=== PATIENT | female | born 1945 | race Caucasian/White ===

== ENCOUNTER 2019-09-11 09:16 | Outpatient (CLI) | payer BC, SELFPAY ==
--- NOTE | 2019-09-11 09:40 | XR_ITS ---
NOTE: Report was unsigned for reason: Order was edited. Original Signature date and time was: 09/11/19; 0951 WS: [id number] XR chest 2V insp/exp [id number] REASON FOR EXAM: MALIGNANT NEOPLASM OF BLADDER FINDINGS: The heart and mediastinum were normal. There is arteriosclerotic changes in the arch of the aorta. Along the left costophrenic angle and cardiac border is a fat pad of no significance. The lung denton are well aerated. There is no active infiltrates. No pneumonia, pleural effusion, pulmonary edema, no masses are seen. No osseous abnormalities. The hilum and apices normal. [facility] XR/XR chest 2V insp/exp [id number] IMPRESSION: Negative chest for active pathology.
--- NOTE | 2019-09-11 09:40 | US_ITS ---
WS: [id number] RENAL ULTRASOUND REASON FOR EXAM: RENAL U/S 09/11/19@9:30 WITH CXR AND LABS.APPT TO FOLLOW TECHNIQUE: Grayscale and Doppler ultrasound examination of the kidneys. FINDINGS: Right kidney: Right kidney measures 9.8 cm x 5.1 cm x 4.0 cm. No hydronephrosis or stones. Left kidney: Left kidney measures 8.9 cm x 5.2 cm x 3.7 cm. Hydronephrosis or stones. The urinary bladder is not seen by history the bladder was removed moved October 2018 has ostomy. US/US renal BI* [id number] IMPRESSION: Normal kidneys bilaterally The urinary bladder is absent.
[2019-09-11 10:42] LABS: Basophils % 0.3 %; Eosinophils # 0.2 10^3/uL (0.0-0.8); Eosinophils % 2.4 %; Hematocrit 41.2 % (37.0-47.0); Hemoglobin 13.1 g/dL (11.5-15.3); Lymphocytes # 1.1 10^3/uL (0.8-4.8); Lymphocytes % 11.7 %; Mean Corpuscular HGB Conc 31.8 g/dL (30.0-36.0); Mean Corpuscular Volume 100.7 fL (81-99); Mean Platelet Volume 9.9 fL (7.4-10.4); Monocytes # 0.6 10^3/uL (0.2-0.9); Neutrophils # 7.3 10^3/uL (1.8-7.7); Nucleated Red Blood Cells % 0 %; Platelet Count 232 10^3/cmm (130-400); Red Blood Count 4.09 10^6/uL (4.1-5.3); Red Cell Distribution Width 12.3 % (12.1-15.1); White Blood Count 9.3 10^3/uL (4.0-10.0)
[2019-09-11 10:58] LABS: Alanine Aminotransferase 18 U/L (0-33); Albumin Level 4.6 g/dL (3.5-5.2); Alkaline Phosphatase 63 IU/L (35-105); Anion Gap 16.1 (5-19); Aspartate Amino Transferase 15 U/L (0-32); Blood Urea Nitrogen 32 mg/dL (8-23); Calcium 10.1 mg/dL (8.5-10.5); Carbon Dioxide 26 mmol/L (22-29); Chloride 98 mmol/L (98-107); Globulin 2.9 g/dL (1.3-4.6); Glucose 269 mg/dL (65-115); Osmolality Calculated 289 mOsm/kg (285-295); Potassium 4.1 mmol/L (3.5-5.1); Sodium 136 mmol/L (136-145); Total Bilirubin 0.2 mg/dL (0.15-1.2); Total Protein 7.5 g/dL (6.6-8.7)
== END 2019-09-11 09:17 | disposition home or self-care (01) ==
PROVIDERS: Family Provider Family Medicine; PCP Family Medicine; Visit Provider Urology
DX: C67.8 Malignant neoplasm of overlapping sites of bladder (principal)
CPT/HCPCS: 71046; 76770; 80053; 85025

== ENCOUNTER 2019-12-30 10:47 | Observation (INO) | payer BC, SELFPAY ==
[2019-12-30] VITALS (15 sets, daily range): BP systolic 124–149; BP diastolic 60–74; PULSE 78–102; RESP 14–18; TEMP 36.7–36.9; O2SAT 94–99; BMI 18.3
--- NOTE | 2019-12-30 10:58 | XRR_ITS ---
PROCEDURE INFORMATION: Exam: XR Chest, 1 View Exam date and time: 12/30/2019 11:00 AM Age: 74 years old Clinical indication: Chest pain TECHNIQUE: Imaging protocol: XR of the chest Views: 1 view. COMPARISON: CR XR chest 2V* [id number] 09/11/2019 9:45 AM FINDINGS: Lungs: Unremarkable. No consolidation. Pleural space: Unremarkable. No pleural effusion. No pneumothorax. Heart/Mediastinum: Unremarkable. No cardiomegaly. Bones/joints: No acute findings. XR/XR chest 1V portable [id number] IMPRESSION: No acute findings.
--- NOTE | 2019-12-30 10:59 | ECG_ITS ---
[facility] ED Test Date: 2019-12-30 Pat Name: Yady Arrington Department: Room: Gender: Female Systems Designer: : 1945 Requested By: Simi Khalil Order Number: [id number] Stephany MD: Adelina Key M.D. Measurements Intervals [place] Rate: 93 P: 67 IL: 158 QRS: 20 QRSD: 89 T: 33 QT: 304 QTc: 379 Interpretive Statements SINUS RHYTHM LOW QRS VOLTAGE IN PRECORDIAL LEADS [QRS DEFLECTION < 1.0 mV IN CHEST LEADS] NONSPECIFIC ST & T-WAVE ABNORMALITY Compared to ECG 07/07/2016 00:01:52 Low QRS voltage now present Sinus tachycardia no longer present T-wave abnormality still present Electronically Signed On 12-30-2019 19:59:41 CDT by Adelina Key M.D. [id number]
[2019-12-30 11:37] LABS: Basophils % 0.4 %; Eosinophils # 0.2 10^3/uL (0.0-0.8); Eosinophils % 2.6 %; Hematocrit 40.1 % (37.0-47.0); Hemoglobin 12.7 g/dL (11.5-15.3); Lymphocytes # 1.3 10^3/uL (0.8-4.8); Lymphocytes % 19.2 %; Mean Corpuscular HGB Conc 31.7 g/dL (30.0-36.0); Mean Corpuscular Hemoglobin 31.9 pg (28.0-34.0); Mean Corpuscular Volume 100.8 fL (81-99); Mean Platelet Volume 10.2 fL (7.4-10.4); Monocytes # 0.7 10^3/uL (0.2-0.9); Monocytes % 9.4 %; Neutrophils # 4.7 10^3/uL (1.8-7.7); Neutrophils % 67.8 %; Nucleated Red Blood Cells % 0 %; Platelet Count 215 10^3/cmm (130-400); Red Blood Count 3.98 10^6/uL (4.1-5.3); Red Cell Distribution Width 13.1 % (12.1-15.1); White Blood Count 6.9 10^3/uL (4.0-10.0)
--- NOTE | 2019-12-30 11:53 | ED_ITS ---
HPI - Chest Pain General: Chief Complaint: Chest Pain Stated Complaint: CP Time Seen by Provider: 12/30/19 10:58 Source: patient and family Mode of arrival: ambulatory Limitations: no limitations History of Present Illness: HPI narrative: Yady is a very nice 74-year-old female who comes in complaining of chest pain. Patient states that she woke up about 1230 in the night because she did not feel right. Then at 230 as she was getting up and getting ready to go back to bed she developed chest pain that radiated to both arms. She associated shortness of breath but denies any diaphoresis, nausea, vomiting. Patient had an old prescription of nitroglycerin and took 3 sublingual nitroglycerin at 1 time. This resolved her pain within 2 to 3 minutes. Patient was then able to sleep through the night but then today she was performing mild activity again when she developed the same chest discomfort as before. She took 3 sublingual nitroglycerin all at once once again and it resolved her pain within 1 to 2 minutes. Patient is concerned now as she is had recurrent pains now and she presents to the ER. She only has mild arm discomfort presently. Associated symptoms: Reports dyspnea; Deny abdominal pain, diaphoresis, fever(s), nausea, palpitations, syncope or vomiting Review of Systems Const: Denies: fever(s), chills, body aches, fatigue, malaise or diaphoresis Eyes: Denies: change in vision, blurry vision, blind spots, photophobia, eye discharge or eye redness ENMT: Denies: throat pain, odynophagia, hoarseness, swelling of lips/tongue, oral sores, ear or mastoid pain, ear discharge, change in hearing or nasal discharge Card: Reports: chest pain; Denies: palpitations, irregular heart rhythm, edema, lightheadedness, syncope, pre-syncope, dyspnea on exertion or orthopnea Resp: Reports: dyspnea; Denies: productive cough, non-productive cough, wheezing, hemoptysis or chest congestion GI: Denies: abdominal pain, nausea, vomiting, hematemesis, coffee ground emesis, heartburn, diarrhea, constipation, GI cramping, hematochezia or melena : Denies: flank pain, dysuria, urinary frequency, urinary urgency or hematuria Musc: Denies: neck pain, back pain, extremity pain, extremity swelling, joint pain, joint swelling, joint redness, joint warmth or joint stiffness Skin/Breast: Denies: rash, pruritus, erythema, skin tenderness or jaundice Neuro: Denies: headache(s), numbness in extremities, weakness in extremities, sensory changes, lack of coordination, difficulty walking, dizziness, vertigo, confusion, Slurred speech present or seizure-like activity Florencio/Lymph: Denies: easy bruising, easy bleeding, petechiae, purpura or enlarged lymph nodes All/Imm: Denies: urticaria, throat swelling, tongue swelling, facial swelling or acute wheezing PFSH ED PFSH: Medical History History of bladder cancer Surgical History History of total cystectomy Hx of cholecystectomy Hx of transurethral destruction of bladder lesion Status post LASIK surgery of both eyes Family History Father , AT AGE 80 EMPHYSEMA No problems noted. Mother , AT AGE 83 Diabetes Social History Smoking and tobacco status: never smoked Alcohol intake: never Adopted: No Caregiver/support person: No Lives independently: No Household members: spouse Marital status: History of recent travel: No Physical Exam Const: COMMON NORMALS: no acute distress, patient oriented x3, no limitations, healthy appearing and well nourished GENERAL APPEARANCE: cooperative, well kempt and well developed HENMT: COMMON NORMALS: normocephalic, atraumatic, external ears normal, EAC's normal and Normal external nose present HEAD & SCALP: normal to inspection, normocephalic and atraumatic FACE & SINUS: normal facial exam and face symmetric NOSE: Normal external nose present and Normal nares present EXTERNAL EAR: Yes external ears normal EXTERNAL AUDITORY CANAL: EAC's normal MOUTH: Normal oral and palatal mucosa present, lip normal and tongue normal Eye: COMMON NORMALS: Equal, round and reactive pupils present and conjunctivae normal GENERAL EYE: appearance normal, both eyes and all related structures ALIGNMENT: Yes alignment normal PERIORBITAL: periorbital findings normal EYELID: eyelids normal CONJUNCTIVA: Yes conjunctivae normal SCLERA: sclerae normal PUPIL: Yes Equal, round and reactive pupils present Neck/C-Spine: COMMON NORMALS: full ROM, no lymphadenopathy, supple, no meningeal signs and no JVD GENERAL: Yes normal visual inspection and Yes trachea midline Chest: COMMONS NORMALS: normal inspection of the chest and normal palpation of entire chest wall Resp: COMMON NORMALS: normal respiratory effort, No retractions and No use of accessory muscles EFFORT & INSPECTION: Yes able to speak in complete sentences and Yes symmetric chest movement AUSCULTATION: no crackles, no rales, no rhonchi and no wheezes Cardio: COMMON NORMALS: no JVD, regular rate, regular rhythm, S1 normal heart sound present and S2 normal heart sound present RATE: regular rate RHYTHM: regular rhythm HEART SOUNDS: S1 normal heart sound present, S2 normal heart sound present, no click, no gallops, no murmurs, no rubs and abnormal split S2 GI: COMMON NORMALS: Soft to palpation and No hepatosplenomegaly present PALPATION: Yes Soft to palpation, No Tenderness to palpation present (GI), No Guarding due to palpation present (GI), No Rigid due to palpation, Yes No hepatosplenomegaly present, No Hernia present, No Palpable mass present and No Pulsatile mass present : COMMON NORMALS: Yes no CVA tenderness BLADDER/KIDNEY EXAM: Yes no CVA tenderness EXTERNAL FEMALE EXAM: No Hernia present Back/Pelvis: COMMON NORMALS: no CVA tenderness, thoracic and lumbar spine normal to inspection, no thoracic nor lumbar tenderness and thoraco-lumbar ROM normal Extremity: COMMON NORMALS: normal to inspection, full ROM, capillary refill normal, no joint enlargement, no clubbing, cyanosis or edema and no calf tenderness Neuro: COMMON NORMALS: patient oriented x3, CN's II-XII intact bilaterally, moves all extremities, no focal motor deficits and no sensory deficits noted MENINGEAL SIGNS: Yes no meningeal signs SPEECH: speech normal Psych: COMMON NORMALS: mental status grossly normal, Normal thought process present, cooperative, normal affect, speech normal and activity/motor behavior n ormal APPEARANCE: Yes well kempt SPEECH: Yes normal speech THOUGHT PROCESS: Normal thought process present Skin: COMMON NORMALS: no rashes or lesions noted, turgor normal, no jaundice, no petechiae and no mottling GENERAL SKIN EXAM: no rashes or lesions noted and turgor normal Course Vital Signs: Vital signs: Vital Signs Temperature 98.5 F 07/05/20 11:03 Pulse Rate 98 12/30/19 11:03 Respiratory Rate 14 12/30/19 11:03 Blood Pressure 133/68 12/30/19 11:03 Pulse Oximetry 98 12/30/19 11:03 MDM - Chest Pain MDM Narrative: Medical decision making narrative: Patient has a heart score of 6. Her symptoms are gone. I gave her Plavix as she is allergic to aspirin and Dr. Lemus, after reviewing the case agreed to admit and she also agreed to a dose of Lovenox. Patient still having no active pain but with her heart score and elevated cardiac enzymes she agrees to admit for rule out and a stress test. Lab Data: Labs: Lab Results 12/30/19 12/30/19 12/30/19 Range/Units 11:30 11:30 11:30 WBC 6.9 (4.0-10.0) 10^3/ uL RBC 3.98 L (4.1-5.3) 10^6/u L Hgb 12.7 (11.5-15.3) g/dL Hct 40.1 (37.0-47.0) % MCV 100.8 H (81-99) fL MCH 31.9 (28.0-34.0) pg MCHC 31.7 (30.0-36.0) g/dL RDW 13.1 (12.1-15.1) % Plt Count 215 (130-400) 10^3/c mm MPV 10.2 (7.4-10.4) fL Neut % (Auto) 67.8 % Lymph % (Auto) 19.2 % Delta % (Auto) 9.4 % Eos % (Auto) 2.6 % Baso % (Auto) 0.4 % Neut # (Auto) 4.7 (1.8-7.7) 10^3/u L Lymph # (Auto) 1.3 (0.8-4.8) 10^3/u L Delta # (Auto) 0.7 (0.2-0.9) 10^3/u L Eos # (Auto) 0.2 (0.0-0.8) 10^3/u L Baso # (Auto) 0.0 (0.0-0.1) 10^3/u L Nucleated RBC % (a uto) 0 % Nucleated RBCs # 0.0 /100WBC Sodium 138 (136-145) mmol/L Potassium 3.8 (3.5-5.1) mmol/L Chloride 105 (98-107) mmol/L Carbon Dioxide 21 L (22-29) mmol/L Anion Gap 15.8 (5-19) BUN 30 H (8-23) mg/dL Creatinine 1.0 H (0.5-0.9) mg/dL Glucose 435 H (65-115) mg/dL Calculated Osmolal ity 302 H (285-295) mOsm/k g Calcium 10.5 (8.5-10.5) mg/dL Magnesium 2.0 (1.7-2.3) mg/dL Total Bilirubin 0.2 (0.15-1.2) mg/dL AST 12 (0-32) U/L ALT 18 (0-33) U/L Alkaline Phosphata se 75 (35-105) IU/L Troponin T Baselin e 34 H (0-10) ng/L NT-Pro-B Natriuret Pep 70 (0-125) pg/mL Total Protein 6.7 (6.6-8.7) g/dL Albumin 4.2 (3.5-5.2) g/dL Globulin 2.5 (1.3-4.6) g/dL Lipase 62 H (13-60) U/L Imaging Data^: CXR: My impression: No acute cardiopulmonary findings. EKG Data^: EKG 1: Attestation: I personally reviewed and interpreted this EKG as follows: EKG interpretation date: 12/30/19 EKG interpretation time: 10:57 Interpretation: Normal sinus rhythm at 93 beats a minute, normal axis, no blocks, normal intervals, nonspecific ST and T wave changes. Discharge Plan Discharge Patient Disposition: Placed in Observation Clinical Impression: Chest pain Condition: Stable Prescriptions: No Action No Known Home Medications RF: 0 Referrals: Braxton Lr [Primary Care Provider] - Coding Level of Care Code ED Cured Meat Packing Supervisor for Chg Fwd Exam Comprehensive
[2019-12-30 12:04] LABS: Troponin(5th) Baseline 34 ng/L (0-10)
[2019-12-30 12:06] LABS: Alanine Aminotransferase 18 U/L (0-33); Albumin Level 4.2 g/dL (3.5-5.2); Alkaline Phosphatase 75 IU/L (35-105); Anion Gap 15.8 (5-19); Aspartate Amino Transferase 12 U/L (0-32); Blood Urea Nitrogen 30 mg/dL (8-23); Calcium 10.5 mg/dL (8.5-10.5); Carbon Dioxide 21 mmol/L (22-29); Chloride 105 mmol/L (98-107); Globulin 2.5 g/dL (1.3-4.6); Glucose 435 mg/dL (65-115); Lipase 62 U/L (13-60); NT Pro B Type Natriuretic Pept 70 pg/mL (0-125); Osmolality Calculated 302 mOsm/kg (285-295); Potassium 3.8 mmol/L (3.5-5.1); Sodium 138 mmol/L (136-145); Total Bilirubin 0.2 mg/dL (0.15-1.2); Total Protein 6.7 g/dL (6.6-8.7)
[2019-12-30] MEDS: nitroglycerin 1 gm/inch oint Pkt 1 INCH TOPICAL (12:36)
[2019-12-30] MEDS: enoxaparin 100 mg/mL Syringe 55 MG SUBCUT (12:41)
[2019-12-30] MEDS: clopidogrel 75 mg Tablet PO (12:42)
--- NOTE | 2019-12-30 12:59 | ECG_ITS ---
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 Measurements Intervals [place] Rate: 86 P: 59 MS: 156 QRS: 23 QRSD: 86 T: 31 QT: 352 QTc: 421 Interpretive Statements SINUS RHYTHM NONSPECIFIC ST & T-WAVE ABNORMALITY Compared to ECG 12/30/2019 10:57:02 No significant changes Electronically Signed On 12-30-2019 20:06:26 CDT by Adelina Key M.D. [id number]
--- NOTE | 2019-12-30 13:19 | PC.NURSE ---
Read and agree with assessment.
[2019-12-30 14:01] LABS: Troponin 5 2HR 26.91 ng/L (0-10)
[2019-12-30 14:04] LABS: Troponin 5 2HR Delta -7.09 ABS# (0-10)
--- NOTE | 2019-12-30 14:53 | PC.NURSE ---
From ER Received pt from ER. Pt is alert, awake, oriented. Denies any pain or discomfort. Not in distress. Pt is on room air. VS taken. Oriented pt on nurse name, and call light use.
--- NOTE | 2019-12-30 15:17 | P.HP_ITS ---
Providers/Chief Complaint Admitting Physician: Marie Lemus MD Primary Care Provider: Braxton Lr Chief Complaint: CP History of Present Illness Yady Arrington is a 74 year old female with a past medical history of mild intermittent asthma and bladder cancer status post RC/IC 1 year ago who presents today complaining of chest pain. Patient states she was in her usual state of health until about last night when at 3 AM she suddenly woke up with substernal chest discomfort described as a heaviness/pressure. The sensation was radiating also into her bilateral shoulders. She took 3 pills of nitro that she had leftover from 12 years ago and went back to sleep after a few hours. This afternoon as she went about doing her regular housework, the sensation came back and again she needed to take 3 nitroglycerin to relieve the sensation. She does have a history of GERD and reflux symptoms. She also took Tums, however states that the pain currently feels very different from her usual GERD and Tums had no improvement on this. Upon presentation to the ER her pain had subsided however she did complain of some vague arm discomfort. Her EKG does not show any acute ST-T wave changes. Baseline troponin is at 34, 2-hour troponin at 26 with negative delta. States pain is much improved after nitrates and getting some morphine in route to the ED. Denies any other complaints of fever, cough, URI type symptoms. Of note she has an allergy to aspirin, which she describes as breaking out into hives all over. She therefore received Plavix in the ED upon arrival. She has also received 1 dose of 55 mg of Lovenox. She denies any associated symptoms such as diaphoresis, nausea vomiting or shortness of breath. Review of Systems General: Reports: 10 or more systems reviewed and unremarkable except in HPI and below Const: Denies: fever(s), chills or body aches Eyes: Denies: change in vision, blurry vision or photophobia ENMT: Denies: throat pain, enlarged tonsils, odynophagia, hoarseness or nasal congestion Card: Reports: chest pain; Denies: palpitations, irregular heart rhythm, edema, swelling of feet/ankles, li ghtheadedness, pre-syncope, dyspnea on exertion or orthopnea Resp: Denies: dyspnea, productive cough, non-productive cough, wheezing, stridor, pain on inspiration, change in phlegm color, hemoptysis or chest congestion GI: Reports: heartburn; Denies: abdominal pain, nausea, vomiting, hematemesis, coffee ground emesis, dysphagia, diarrhea, constipation, GI cramping, change in stool character, hematochezia or melena : Denies: flank pain, difficulty voiding, dysuria, urinary frequency, urinary urgency, urinary hesitancy or hematuria Musc: Denies: neck pain, back pain, extremity pain, joint swelling, joint warmth or deformity Neuro: Denies: headache(s), numbness in extremities, weakness in extremities, sensory changes, difficulty walking, frequent falls, dizziness, vertigo, behavioral changes, Slurred speech present or seizure-like activity Psych: Denies: anxiety, depression, suicidal ideation or homicidal ideation Endo: Denies: polyuria, polydipsia, tired all the time, cold intolerance or hot flashes Florencio/Lymph: Denies: easy bruising or easy bleeding Medications/Allergies Home Medications Medication Instructions Recorded Confirmed Last Taken Type fluticasone propionate [Flonase 2 spray INTRANASAL DAILY 12/30/19 12/30/19 12/30/19 History Allergy Relief] Allergies Allergy/AdvReac Type Severity Reaction Status Date / Time Penicillins Allergy ALGY-Rash Verified 09/11/19 10:53 aspirin AdvReac ADR-Itching Verified 09/11/19 10:53 PFSH Acute PFSH: Medical History History of bladder cancer Surgical History History of total cystectomy Hx of cholecystectomy Hx of transurethral destruction of bladder lesion Status post LASIK surgery of both eyes Family History Father , AT AGE 80 EMPHYSEMA No problems noted. Mother , AT AGE 83 Diabetes Social History Smoking and tobacco status: never smoked Alcohol intake: never Adopted: No Caregiver/support person: No Lives independently: No Household members: spouse Marital status: History of recent travel: No Vitals/I&O/Wt Last Vital Signs Temp 98.3 F 12/30/19 15:05 Pulse 93 12/30/19 15:05 Resp 18 12/30/19 15:05 BP 149/74 12/30/19 15:05 Pulse Ox 99 12/30/19 15:05 Weight last 48 hrs Weight 54.683 kg Physical Exam Narrative: EXAM NARRATIVE: GEN: Awake, alert and oriented, no acute distress HEENT: normocephalic, atraumatic CVS: S1S2 N RS: CTA B/L Abd: Soft, nt/nd , bs+ ELEVATOR EXAMINER: no focal neuro deficits EXT: no edema, cyanosis, clubbing Data : 12/30/19 11:30 12/30/19 11:30 A&P Assessment and plan (1) Unstable angina: Status: Acute (2) Hyperglycemia: Status: Acute Additional A&P Information Admit to CSU in observation 1. Chest pain EKG without any acute ST-T wave changes and troponins are mildly elevated with a -2-hour delta. Less likely to be an acute NJ. Continue to trend. However unstable angina cannot be ruled out. We will go ahead and schedule patient for a stress test in the morning. Other differentials include GERD, however patient states currently the pain feels very different from her regular reflux symptoms and is also exacerbated by minimal activity which seems very uncharacteristic of reflux disease. In the interim continue Plavix. Hold off on any further doses of Lovenox as this is less likely to be an acute NJ. Topical nitrates as needed as needed for chest pain. We will obtain baseline echocardiogram #2 incidentally noted hyperglycemia on labs in the absence of any past history of diabetes mellitus. We will recheck with a fingerstick right now and also obtain an HbA1c Obtain lipid panel #3 history of mild intermittent asthma requiring only as needed albuterol inhalers at home. Not currently in exacerbation. DVT prophylaxis Lovenox Patient is full code Attestations Medical Necessity Statement*: Admitted observation for ongoing chest pain, need to evaluate for unstable angina. Coding Level of Care Code Acute Concrete Conveyor Operator for Gerry Cotter Diagnoses Unstable angina I20.0 Hyperglycemia R73.9
[2019-12-30 15:41] LABS: Glucose Point of Care 352 mg/dL (70-110)
[2019-12-30 16:06] LABS: Bilirubin Urine Neg (NEGATIVE); Blood Urine 2+ (Negative); Glucose Urine UA 1+ (Normal); Ketones Urine Negative (Negative); Leukocyte Esterase Urine Trace (Negative); Nitrate Urine Positive (Negative); Protein Urine 1+ (Negative); Specific Gravity, Urine 1.025 (1.005-1.030); Urine Appearance Hazy (CLEAR); Urine Color Yellow (Yellow); Urobilinogen Urine Norm (Negative); pH Urine 7 (5-7)
[2019-12-30 16:07] LABS: Add Urine Culture? Yes; Bacteria Urine 2+; RBC Urine 0-4 /hpf (0-2); Transitional Epi Cells Urine 0-4 /hpf; WBC Urine 0-4 /hpf (0-5)
[2019-12-30 16:21] LABS: Chol HDL Ratio 3.43 mg/dL (0.0-4.40); Cholesterol 223 mg/dL (0-200); HDL Cholesterol 65 mg/dL (60-100); LDL Cholesterol Calculated 103 mg/dL (50-129); LDL HDL Ratio 1.58 RATIO (0.00-3.22); Triglycerides 273 mg/dL (0-150)
--- NOTE | 2019-12-30 16:59 | ECG_ITS ---
[facility] Test Date: 2019-12-30 Pat Name: Yady Arrington Department: Room: 102 Gender: Female Bleach Tester: : 1945 Requested By: Simi Khalil Order Number: [id number] Stephany MD: Adelina Key M.D. Measurements Intervals [place] Rate: 100 P: 57 AR: 152 QRS: 26 QRSD: 84 T: 81 QT: 338 QTc: 437 Interpretive Statements SINUS TACHYCARDIA NONSPECIFIC ST & T-WAVE ABNORMALITY ABNORMAL RHYTHM ECG Compared to ECG 12/30/2019 14:12:43 Sinus rhythm no longer present T-wave abnormality still present Electronically Signed On 12-30-2019 20:06:52 CDT by Adelina Key M.D. [id number]
[2019-12-30 17:15] LABS: Estmated Average Glucose 292; Hemoglobin A1C 11.8 % (4.0-6.0)
[2019-12-30 18:28] LABS: Troponin 5 6HR 23.82 ng/L (0-10)
[2019-12-30] MEDS: acetaminophen 325 mg Tablet 650 MG PO (19:40)
--- NOTE | 2019-12-30 19:41 | PC.NURSE ---
Patient complains of a headache and was given PRN Tylenol. Patient states I haven't had any chest pain since I got here when asked about chest pain. Will monitor.
--- NOTE | 2019-12-30 23:45 | PC.NURSE ---
Patient is not complaining of any chest pain, but is still complaining of a headache, asking for more Tylenol.
[2019-12-31] VITALS (8 sets, daily range): BP systolic 123–160; BP diastolic 60–79; PULSE 82–100; RESP 14–22; TEMP 36.4–36.9; O2SAT 94–96
--- NOTE | 2019-12-31 01:02 | PC.NURSE ---
Went to give patient Tylenol and patient is currently resting with eyes closed. Will reassess pain later and give PRN Tylenol if needed.
[2019-12-31] MEDS: morphine 4 mg/mL SDV 1 mL IVP (02:00)
--- NOTE | 2019-12-31 02:10 | PC.NURSE ---
Patient complaints of headache that radiates into left shoulder. PRN Morphine given. EKG taken. Will reassess pain.
--- NOTE | 2019-12-31 02:18 | PC.NURSE ---
Patient's blood sugar was 248 at bedtime. Accucheck machine is docked, but has not transferred to computer chart.
--- NOTE | 2019-12-31 03:21 | PC.NURSE ---
Patient states she has not been able to sleep much. Patient states I have trouble sleeping at home too. Patient states my head and left shoulder is much better, it still hurts just a tad. Will continue to reassess pain.
[2019-12-31 03:57] LABS: Basophils % 0.3 %; Eosinophils # 0.2 10^3/uL (0.0-0.8); Hematocrit 41.5 % (37.0-47.0); Hemoglobin 13.1 g/dL (11.5-15.3); Lymphocytes # 1.4 10^3/uL (0.8-4.8); Lymphocytes % 21.3 %; Mean Corpuscular HGB Conc 31.6 g/dL (30.0-36.0); Mean Corpuscular Hemoglobin 31.4 pg (28.0-34.0); Mean Corpuscular Volume 99.5 fL (81-99); Mean Platelet Volume 10.6 fL (7.4-10.4); Monocytes # 0.5 10^3/uL (0.2-0.9); Monocytes % 7.3 %; Neutrophils # 4.4 10^3/uL (1.8-7.7); Neutrophils % 67.8 %; Nucleated Red Blood Cells % 0 %; Platelet Count 227 10^3/cmm (130-400); Red Blood Count 4.17 10^6/uL (4.1-5.3); Red Cell Distribution Width 13.1 % (12.1-15.1); White Blood Count 6.6 10^3/uL (4.0-10.0)
[2019-12-31 04:15] LABS: Anion Gap 16.6 (5-19); Blood Urea Nitrogen 29 mg/dL (8-23); Calcium 9.3 mg/dL (8.5-10.5); Carbon Dioxide 20 mmol/L (22-29); Chloride 105 mmol/L (98-107); Glucose 263 mg/dL (65-115); Osmolality Calculated 292 mOsm/kg (285-295); Potassium 3.6 mmol/L (3.5-5.1); Sodium 138 mmol/L (136-145)
[2019-12-31 04:21] LABS: Thyroid Stimulating Hormone 1.63 uIU/mL (0.27-4.20)
--- NOTE | 2019-12-31 06:00 | ECG_ITS ---
[facility] Test Date: 2019-12-31 Pat Name: Yady Arrington Department: Room: 102 Gender: Female Histology Teacher: Zohreh Dumont : 1945 Requested By: Marie Lemus Order Number: [id number] Stephany MD: Joao Ramos M.D. Interpretive Statements NAME OF STUDY: LEXISCAN SESTAMIBI STRESS TEST INDICATION: Chest Pain, LEXISCAN STRESS TEST ORDERING PHYSICIAN: Hospitalist CLINICAL INFORMATION: Chest pain INTERPRETATION: 1. The patient was brought to the laboratory where Lexiscan was infused over 20 seconds. The resting blood pressure was 141/48. Maximum blood pressure was 197/74. The resting heart rate was 93 beats per minute. The maximum heart rate is 133 beats per minute. 2. The baseline electrocardiogram reveals sinus rhythm with nonspecific ST changes and unusual R wave progression 3. With Lexiscan infusion, there were no ST segment changes to suggest ischemia. 4. The patient experienced no symptoms or arrhythmias during the examination. CONCLUSION: 1. Unremarkable Lexiscan infusion. 2. Nuclear imaging to follow. Electronically Signed On 12-31-2019 9:29:50 CDT by Joao Raoms M.D. [id number]
--- NOTE | 2019-12-31 06:15 | PC.NURSE ---
Patient's blood glucose is 240 at this time on accucheck machine.
[2019-12-31 06:26] LABS: Glucose Point of Care 240 mg/dL (70-110)
--- NOTE | 2019-12-31 07:30 | PC.NURSE ---
Patient off floor at [facility].
[2019-12-31] MEDS: regadenoson 0.4 Mg/5 ml Syringe IVP (08:27)
[2019-12-31] MEDS: ondansetron 2 mg/ML SDV 2 mL 4 MG IVP (08:33)
--- NOTE | 2019-12-31 08:50 | PC.NURSE ---
Patient back in room.
--- NOTE | 2019-12-31 09:47 | PC.CHAP ---
Pastoral Care Encounter/Spiritual Assessment Type of Contact [] Declined fireworks maker visit [] Patient/Family/Request visit [] Outpatient visit [] Follow-up visit [] Physician referral [] Code/Alert [x] Routine visit [] Staff referral [] Actively dying [] Patient sleeping [] Family support [] [] Out of room [] Palliative care [] [] Receiving care in room [] Pre-surgical visit [] Trauma [] Long length of stay [] ICU visit [] Other: Relational/Emotional Strength [] Patient feels connected with others/family/visitors/staff [] Distress [] Loneliness/isolation [] Abandonment Spirituality of Patient [] Person of Lena [] Attends Muslim of their Lena [] Believes in Prayer [] Reads Bible or Zoroastrian materials [] There are 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 [x] Prayer [] Active listening [x] Non-anxious presence [x] Spiritual/emotional support [] Crisis/trauma care [] Spiritual counseling [] Bereavement support [] Provided bereavement packet [] Provided Bible/devotional materials [] Provided toy/stuffed animal, coloring book to patient or family member [] Provided Communion [] Anointing/[place] [] Salvation [x] Completed spiritual assessment [] Other: Impact on Illness or Injury [] Angry [] Fearful [] Anxious [] Often cries [] Exhaustion [] Unable to work [] Unable to attend yarsanism [] Unable to walk/stand [] Unable to read [] Unable to drive [] Unable to eat/drink [] Unable to sleep [] Unable to be with family [] Patient intubated [] Other: Summary Patient had early am stress test- Patient has no appetite. Has one remaining test Time spent with patient 10 min
--- NOTE | 2019-12-31 10:30 | PC.NURSE ---
Patient taken back to nuclear medicine to complete stress test.
[2019-12-31] MEDS: insulin glargine 100 units/1 mL 10 UNIT SUBCUT (11:20)
[2019-12-31 11:28] LABS: Glucose Point of Care 287 mg/dL (70-110)
--- NOTE | 2019-12-31 12:00 | PC.NURSE ---
Demonstrated and explained how to give an insulin injection.
[2019-12-31] MEDS: enoxaparin 40 mg/0.4 mL Syringe SUBCUT (12:23)
--- NOTE | 2019-12-31 13:44 | P.DS_ITS ---
Discharge Providers Date of Admission: 12/30/19 12:26 Date of Discharge: December 31, 2019 Attending Provider at Admission: Marie Lemus MD Attending Provider at Discharge: Darryl Griffin MD Primary Care Provider: Braxton Lr Diagnoses at Discharge Discharge Diagnosis (1) Unstable angina: Status: Acute Problem details: Nuclear stress test negative. Troponin without significant increase on trend (2) Hyperglycemia: Status: Acute Problem details: Consistent with diabetes. Hemoglobin A1c 11.8 Reason for Visit Reason for Visit: CP Hospital Course Hospital Course: Yady is a 74-year-old white female who presented to the hospital with chest discomfort. Initial troponin was 34, then 26, then 23. EKG did not did not demonstrate any ischemic changes. She took some nitroglycerin at home. She had a current and past history of reflux. While in the hospital patient underwent a nuclear stress imaging test which was negative for ischemia. She was also found to have an elevated sugar, and A1c consistent with diabetes. Insulin was initiated. TSH was checked and normal. When I evaluated the patient she was chest discomfort free. She wished to go home. We discussed limitations of nuclear stress testing. She will discharge on Lantus, NovoLog, and metformin and have close follow-up with her primary care provider. Protonix will also be initiated secondary to concern chest discomfort may be reflux related. Physical Exam Narrative: EXAM NARRATIVE: General exam no apparent distress Cardiovascular regular rate and rhythm without murmur Lungs clear Abdomen is soft with positive bowel sounds Extremities no cyanosis clubbing or edema Discharge Data Data Completed and Pending: Completed Studies During Hospitalization Category Date Time Status Sestamibi Stress Test Request Routi ne Exams 12/31/19 06:00 Completed XR chest 1V cooper ble [id number] Stat Exams 12/30/19 10:58 Completed NM neeta perf SPECT r/s* [id number] Routin e Nuc Med 12/31/19 18:19 Completed Pending at discharge Category Date Time Status Urine Culture Sta t Lab 12/30/19 15:09 Received Labs from last 24 hours 12/31/19 12/31/19 12/31/19 11:19 06:08 03:04 WBC RBC Hgb Hct MCV MCH MCHC RDW Plt Count MPV Neut % (Auto) Lymph % (Auto) [place] % (Auto) Eos % (Auto) Baso % (Auto) Neut # (Auto) Lymph # (Auto) [place] # (Auto) Eos # (Auto) Baso # (Auto) Nucleated RBC % (a uto) Nucleated RBCs # Sodium Potassium Chloride Carbon Dioxide Anion Gap BUN Creatinine Glucose POC Glucose 287 240 Estimat Average Gl ucose Hemoglobin A1c Calculated Osmolal ity Calcium Troponin I 6 Hour Troponin I Hi Sens Del Troponin T 120 Min [place]nine [place] Troponin T Triglycerides Cholesterol LDL Cholesterol, C alc HDL Cholesterol LDL/HDL Ratio Cholesterol/HDL Ra federico TSH 1.63 Urine Color Urine Appearance Urine pH Ur Specific Gravit y Urine Protein Urine Glucose (UA) Urine Ketones Urine Blood Urine Nitrate Urine Bilirubin Urine Urobilinogen Ur Leukocyte Samra ase Urine RBC Urine WBC Ur Squamous Epith Cells Ur Transition Epit h Cell Urine Bacteria 12/31/19 12/31/19 12/30/19 03:04 03:04 17:37 WBC 6.6 RBC 4.17 Hgb 13.1 Hct 41.5 MCV 99.5 H MCH 31.4 MCHC 31.6 RDW 13.1 Plt Count 227 MPV 10.6 H Neut % (Auto) 67.8 Lymph % (Auto) 21.3 [place] % (Auto) 7.3 Eos % (Auto) 3.0 Baso % (Auto) 0.3 Neut # (Auto) 4.4 Lymph # (Auto) 1.4 [place] # (Auto) 0.5 Eos # (Auto) 0.2 Baso # (Auto) 0.0 Nucleated RBC % (a uto) 0 Nucleated RBCs # 0.0 Sodium 138 Potassium 3.6 Chloride 105 Carbon Dioxide 20 L Anion Gap 16.6 BUN 29 H Creatinine 0.9 Glucose 263 H POC Glucose Estimat Average Gl ucose Hemoglobin A1c Calculated Osmolal ity 292 Calcium 9.3 Troponin I 6 Hour 23.82 H Troponin I Hi Sens Del -10.18 L Troponin T 120 Min [place] Troponin T Triglycerides Cholesterol LDL Cholesterol, C alc HDL Cholesterol LDL/HDL Ratio Cholesterol/HDL Ra federico TSH Urine Color Urine Appearance Urine pH Ur Specific Gravit y Urine Protein Urine Glucose (UA) Urine Ketones Urine Blood Urine Nitrate Urine Bilirubin Urine Urobilinogen Ur Leukocyte Samra ase Urine RBC Urine WBC Ur Squamous Epith Cells Ur Transition Epit h Cell Urine Bacteria 12/30/19 12/30/19 12/30/19 15:27 15:09 13:28 WBC RBC Hgb Hct MCV MCH MCHC RDW Plt Count MPV Neut % (Auto) Lymph % (Auto) [place] % (Auto) Eos % (Auto) Baso % (Auto) Neut # (Auto) Lymph # (Auto) [place] # (Auto) Eos # (Auto) Baso # (Auto) Nucleated RBC % (a uto) Nucleated RBCs # Sodium Potassium Chloride Carbon Dioxide Anion Gap BUN Creatinine Glucose POC Glucose 352 Estimat Average Gl ucose Hemoglobin A1c Calculated Osmolal ity Calcium Troponin I 6 Hour Troponin I Hi Sens Del Troponin T 120 Min [place] 26.91 H Delta Troponin T -7.09 L Triglycerides Cholesterol LDL Cholesterol, C alc HDL Cholesterol LDL/HDL Ratio Cholesterol/HDL Ra federico TSH Urine Color Yellow Urine Appearance Hazy A Urine pH 7 Ur Specific Gravit y 1.025 Urine Protein 1+ H Urine Glucose (UA) 1+ Urine Ketones Negative Urine Blood 2+ H Urine Nitrate Positive H Urine Bilirubin Neg Urine Urobilinogen Norm Ur Leukocyte [place] ase Trace H Urine RBC 0-4 H Urine WBC 0-4 H Ur Squamous Epith Cells None Ur Transition Epit h Cell 0-4 Urine Bacteria 2+ H 12/30/19 12/30/19 11:30 11:30 WBC RBC Hgb Hct MCV MCH MCHC RDW Plt Count MPV Neut % (Auto) Lymph % (Auto) [place] % (Auto) Eos % (Auto) Baso % (Auto) Neut # (Auto) Lymph # (Auto) [place] # (Auto) Eos # (Auto) Baso # (Auto) Nucleated RBC % (a uto) Nucleated RBCs # Sodium Potassium Chloride Carbon Dioxide Anion Gap BUN Creatinine Glucose POC Glucose Estimat Average Gl ucose 292 Hemoglobin A1c 11.8 H Calculated Osmolal ity Calcium Troponin I 6 Hour Troponin I Hi Sens Del Troponin T 120 Min [place] Troponin T Triglycerides 273 H Cholesterol 223 H LDL Cholesterol, C alc 103 HDL Cholesterol 65 LDL/HDL Ratio 1.58 Cholesterol/HDL Ra federico 3.43 TSH Urine Color Urine Appearance Urine pH Ur Specific Gravit y Urine Protein Urine Glucose (UA) Urine Ketones Urine Blood Urine Nitrate Urine Bilirubin Urine Urobilinogen Ur Leukocyte Sam[place] ase Urine RBC Urine WBC Ur Squamous Epith Cells Ur Transition Epit h Cell Urine Bacteria Vitals: Last Vital Signs Temp 97.6 F 12/31/19 12:00 Pulse 89 12/31/19 12:00 Resp 20 H 12/31/19 12:00 BP 124/60 12/31/19 12:00 Pulse Ox 96 12/31/19 12:00 Discharge Plan Discharge Patient Disposition: Home, Self-Care Condition: Stable Prescriptions: New (DME) Advanced Glucose Meter Misc See Rx Instructions .ROUTE .MEDSUPPLY Qty: 1 RF: 0 insulin aspart U-100 [Novolog Flexpen U-100 Insulin] 100 unit/mL (3 mL) insulin pen 5 unit SUBCUT TID Qty: 15 RF: 0 metformin 500 mg tablet 500 mg PO BID Qty: 60 RF: 0 Levemir FlexTouch U-100 Insuln 100 unit/mL (3 mL) insulin pen 10 unit SUBCUT QPM Qty: 15 RF: 0 pantoprazole [Protonix] 40 mg tablet,delayed release (DR/EC) 40 mg PO DAILY Qty: 30 RF: 0 Continued fluticasone propionate [Flonase Allergy Relief] 50 mcg/actuation [place],Suspension 2 spray INTRANASAL DAILY RF: 0 Discharge Orders: Discharge Order (Routine); Ordered 12/31/19 Ordered By: Darryl Griffin Referrals: Braxton Lr [Primary Care Provider] - 4-7 days Discharge Diet: Diabetic Discharge Activity: Increase activity as tolerated Activity Restrictions/Additional Instructions: Return for any recurrent episodes of chest discomfort. Check blood sugars and report to primary care provider on follow-up and 4 to 7 days. Discharge Attestations Time Spent in Discharge Care*: greater than 30 min Quality Metrics Clinical Quality Measures During this hospital stay, did patient experience: None Coding Level of Care Code Acute Environmental Science Program Director for Gerry Cotter Diagnoses Unstable angina I20.0 Hyperglycemia R73.9
--- NOTE | 2019-12-31 18:19 | NMCV_ITS ---
NM neeta perf SPECT r/s* [id number] Yady Arrington Age: 74 Gender: F : 1945 Exam Date: 12/31/2019 07:06 Ordering Phys: Marie Lemus MD Technologist: LAURA Gamboa Exam Location: [facility] Indications: CHEST PAIN STRESS TEST [facility] IMAGE PROTOCOL Rest/Stress 1 Lexiscan Day Radiopharmaceutical Dose (mCi) Administration Site Administered by Rest: Tc-99m 10.7 IV LAURA Gamboa Sestamibi Stress:Tc-99m 32.3 IV LAURA Feldman Sestamibi Rest: 31-Dec-2019 60 Discovery 630 Stress: 31-Dec-2019 30 Discovery 630 0.4mg Lexiscan. Supine position only as patient was unable to lay prone. SPECT RESULTS Technical Quality: Excellent Raw Data Analysis: Normal Image Corrections: No attenuation or motion correction applied Summed Stress Score: 0 Summed Rest Score: 12 Summed Difference Score: 0 PERFUSION FINDINGS Medium-sized area of patchy decreased tracer uptake noted in basal to distal inferior and apical wall on the rest images which improved significantly over stress images suggestive of artifact. FUNCTIONAL RESULTS (calculated via Gated SPECT) Stress Image LV EF (%): 96 Stress EDV (mL):25 TID: 0.73 Stress ESV (mL):1 Rest Image LV EF (%): 96 FUNCTIONAL FINDINGS: Hyperdynamic left ventricle ejection fraction with complete obliteration of cavity estimated ejection fraction is 96% IMPRESSIONS Myocardial perfusion imaging is normal and low probability for obstructive coronary artery disease. Christi Horan MD (Electronically Signed) Final Date: 31 December 2019 12:59 S
--- NOTE | 2019-12-31 18:41 | PC.NURSE ---
Received phone call from Omar Arrington, stating his Yady needed a prescription for lancets and strips to go with the prescription they have for the glucometer. I contacted Dr. Griffin by telephone and he authorized me to call [facility] with a verbal prescription for the lancets and strips. [facility] is closed and does not allow for leaving a message. I aalso inquired of Dr. Griffin if the patient should take her insulin tonight. He instructed me that the patient should take the 10 units of levemir insulin tonight but not the short acting aspart insulin. I called Omar Rosina back at his home phone [phone] and told him we would call in a prescription for lancewts and strips and instructed him about Yady only taking the levemir 10 units of insulin tonight. I will ask the day shift charge nurse for Sunday 12/31 to call in the prescriptions when the [facility] is open.
== END 2019-12-31 16:00 | disposition home or self-care (01) ==
LOC: ER 12:52 → CSU 13:09
PROVIDERS: Emergency Medicine; Admitting Provider Student in an Organized Health Care Education/Training Program; PCP Family Medicine; Visit Provider Internal Medicine
DX: I20.0 Unstable angina (principal); E11.65 Type 2 diabetes mellitus with hyperglycemia; Z85.51 Personal history of malignant neoplasm of bladder; J45.20 Mild intermittent asthma, uncomplicated
CPT/HCPCS: 12345; 36415; 36416; 71045; 78452; 80048; 80053; 80061; 81001; 82962; 83036; 83690; 83735; 83880; 84443; 84484; 85025; 87077; 87086; 87186; 93005; 93017; 96372; 96374; 96375; 99283; 99285; A9500; G0378; J1650; J1815; J2270; J2405; J2785